=== PATIENT | female | born 1955 | race American Indian/Alaskan Native ===

== ENCOUNTER 2016-08-28 09:07 | Emergency (ER) | payer SELFPAY ==
[2016-08-28] MEDS ORDERED: LIDOCAINE VISCOUS 2% PO ONE (12:35)
[2016-08-28] MEDS ORDERED: TORADOL IM ONE (12:35)
[2016-08-28] MEDS ORDERED: DECADRON PO ONE (13:00)
[2016-08-28 14:19] VITALS: BP 155/98
--- NOTE | 2016-08-28 14:25 | Emergency Department Report ---
Entered by ROSA PATTERSON, acting as scribe for LYRIC BAEZ PA. ED General Adult HPI - General Chief complaint: Sore Throat Stated complaint: SORE THROAT Time Seen by Provider: 08/28/16 11:05 Source: patient Mode of arrival: Ambulatory Limitations: No Limitations - History of Present Illness Initial comments: 61 year old female presents to the ED for cold symptoms for 5 days. She reports sore throat, subjective fever, mild cough, and mucous. Patient states throat pain is worse with swallowing. She has taken Theraflu and DayQuil with mild relief of symptoms. She reports sick contact with grandson prior to symptom onset. Denies chest pain, shortness of breath, abdominal pain, nausea, vomiting. Onset/Timin -: days(s) Location: mouth (sore throat) Consistency: constant Improves with: none Worsens with: other (swallowing) Associated Symptoms: cough (mild), other (subjective fever, mucous). denies: chest pain, nausea/vomiting, shortness of breath Treatments Prior to Arrival: other (Theraful and DayQuil with mild relief) - Related Data Previous Rx's Medication Instructions Recorded Last Taken Type Azithromycin [Zithromax TAB] 500 mg PO QDAY #5 tablet 08/28/16 Unknown Rx Lidocaine Viscous 2% 15 ml MM TID #100 ml 08/28/16 Unknown Rx Naproxen [Naprosyn] 500 mg PO BID #30 tablet 08/28/16 Unknown Rx Allergies Allergy/AdvReac Type Severity Reaction Status Date / Time Penicillins Allergy Unknown Verified 10/19/15 17:55 ED Review of Systems Comment: All other systems reviewed and negative Constitutional: chills, fever (subjective) ENT: throat pain (worse with swallowing), other (mucous) Respiratory: cough (mild). denies: shortness of breath Cardiovascular: denies: chest pain Gastrointestinal: denies: abdominal pain, nausea, vomiting ED Past Medical Hx - Past Medical History Previous Medical History?: Yes Hx Hypertension: Yes - Surgical History Past Surgical History?: No - Social History Smoking Status: Never Smoker Substance Use Type: Alcohol, Prescribed, Other - Medications Home Medications: Home Medications Medication Instructions Recorded Confirmed Last Taken Type Azithromycin [Zithromax TAB] 500 mg PO QDAY #5 tablet 08/28/16 Unknown Rx Lidocaine Viscous 2% 15 ml MM TID #100 ml 08/28/16 Unknown Rx Naproxen [Naprosyn] 500 mg PO BID #30 tablet 08/28/16 Unknown Rx ED Physical Exam - General Limitations: No Limitations - Other Other exam information: GENERAL: The patient is well-developed and well-nourished. Patient is in NAD. HEAD: Normocephalic. Atraumatic. EYES: Extraocular motions are intact, PERRL. EARS: External auditory canals and tympanic membranes clear; hearing grossly intact. NOSE: Normal nasal mucosa with no nasal discharge. THROAT: Tonsillomegaly bilaterally with exudates and erythema. NECK: Supple. Right anterior cervical lymphadenopathy present. No meningitic signs are noted. CHEST/LUNGS: Clear to auscultation throughout. HEART/CARDIOVASCULAR: Regular rate and rhythm. No murmurs, rubs or gallops. ABDOMEN: Abdomen is soft, nontender. Bowel sounds normoactive. No guarding or rebound tenderness. NEURO: Alert and oriented x 3. Normal gait. ED Course Vital Signs 08/28/16 09:20 Temperature 98.4 F Pulse Rate 116 H Respiratory 20 Rate Blood Pressure 157/103 O2 Sat by Pulse 95 Oximetry ED Medical Decision Making - Lab Data Vital Signs 08/28/16 08/28/16 09:20 14:18 Temperature 98.4 F Pulse Rate 116 H 96 H Respiratory 20 20 Rate Blood Pressure 157/103 Blood Pressure 155/98 [Left] O2 Sat by Pulse 95 97 Oximetry - Medical Decision Making 61 year old female patient presents today with cold symptoms, sore throat, cough for 5 days. Her rapid strep reveals negative. Patient was given viscous lidocaine, Decadron by mouth and Toradol IM and she reports symptomatic relief post medication. She will be discharged home and is encouraged to follow up with a primary care provider. She will be sent home on azithromycin, viscous lidocaine and naprosyn and is encouraged to return to the emergency room for any worsening symptoms. ED Disposition Clinical Impression: Pharyngitis Qualifiers: Pharyngitis/tonsillitis etiology: unspecified etiology Qualified Code(s): J02.9 - Acute pharyngitis, unspecified Disposition: DISCHARGED TO HOME OR SELFCARE Is pt being admited?: No Does the pt Need Aspirin: No Condition: Stable Instructions: Pharyngitis (ED), Strep Throat (ED) Additional Instructions: Follow-up with primary care provider. Return to the emergency department if symptoms worsen. Prescriptions: Azithromycin [Zithromax TAB] 500 mg PO QDAY #5 tablet Lidocaine Viscous 2% 15 ml MM TID #100 ml Naproxen [Naprosyn] 500 mg PO BID #30 tablet Referrals: PRIMARY CARE,MD [Primary Care Provider] - 3-5 Days [facility] [Outside] - 3-5 Days Forms: Work/School Release Form(ED) Time of Disposition: 14:23 This documentation as recorded by the LEONARDO umana REBEKAH,accurately reflects the service I personally performed and the decisions made by NESTOR campbell NATASHA, PA.
== END 2016-08-28 14:30 | disposition home or self-care (01) ==
LOC: ED 09:07
DX: J02.9 Acute pharyngitis, unspecified (principal); I10 Essential (primary) hypertension; Z88.0 Allergy status to penicillin
CPT/HCPCS: 87116; 87430; 96372; 99282; J1885; J8540

== ENCOUNTER 2018-11-23 04:49 | Emergency (ER) | payer SELFPAY ==
[2018-11-23 04:56] VITALS: BP 142/88
[2018-11-23] MEDS ORDERED: SOLU-Medrol IM ONE (05:28)
[2018-11-23] MEDS ORDERED: FLEXERIL PO ONE (05:29)
[2018-11-23] MEDS ORDERED: ZOFRAN ODT ONE (06:38)
[2018-11-23] MEDS ORDERED: ZOFRAN ODT PO ONE (06:40)
[2018-11-23 06:44] LABS: Bacteria,Urine 1+ /HPF (Negative); Bilirubin,Urine NEG (Negative); Blood,Urine SM (Negative); Color,Urine Yellow (Yellow); Hyaline Casts,Urine 1 /LPF; Mucus,Urine FEW /HPF; Protein,Urine <15 mg/dL mg/dL (Negative); Urobilinogen,Urine < 2.0 mg/dL (<2.0)
[2018-11-23] MEDS ORDERED: LEVAQUIN PO ONE (06:51)
--- NOTE | 2018-11-23 06:57 | Cat Scan Report ---
PROCEDURE: CT LUMBAR SPINE WO CON TECHNIQUE: Computerized axial tomography of the lumbar spine was performed from T12 to the sacrum wi thout contrast material. CT DOSE LENGTH PRODUCT: mGycm HISTORY: lower back pain COMPARISONS: None . FINDINGS: There is straightening of the lumbar spine. There are no fractures or malalignments. L1-2: No significant abnormality . L2-3: No significant abnormality . L3-4: There is moderate degenerative narrowing of the disc space. There is left lateral disc bulging and osteophytic ridging causing moderate left foraminal stenosis. . L4-5: No significant abnormality . L5-S1: No significant abnormality . Other: The sacrum and sacroiliac joints are intact. Soft tissues are unremarkable. . IMPRESSION: There is no fracture or malalignment. There is no disc herniation or significant spinal stenosis. . There is moderate degenerative narrowing of the disc space at L3-L4 with left lateral disc bulging an d osteophytic ridging causing moderate left foraminal stenosis. . This document is electronically signed by Samuel Hendrix MD., November 23 2018 06:55:06 AM ET
--- NOTE | 2018-11-23 06:57 | Emergency Department Report ---
ED Back Pain/Injury HPI - General Chief Complaint: Back Pain/Injury Stated Complaint: LOWER BACK LEG PAIN Time Seen by Provider: 11/23/18 05:20 Source: patient Limitations: No Limitations - History of Present Illness Initial Comments: Patient is a 63-year-old -[place] female with a history of hypertension who presents to the ED record in no acute onset persistent severe low back pain that radiates to the lower extremities bilaterally for the last one hour. Patient states that she was asleep when she turned on her bed and felt a sharp pain on her lower back that radiates to her lower extremities bilaterally. Patient states that she was unable to move or perform any activities or motion because of severe pain. Patient states that she has taken a total of about 1600 mg of ibuprofen, and also took a Percocet 5 mg/325 mg 4-5 minutes prior to arrival in the ED. Patient states the pain is still present and worse and she is unable to bear weight because of severe pain. Patient denies dysuria, urinary frequency and urgency, hematuria, traumatic injury, heavy lifting, fall, numbness and tingling or weakness of lower extremities bilaterally, dizziness, chest pain, shortness of breath, urinary or bowel incontinence, saddle paresthesia, neck pain or abdominal pain, fever and chills. MD Complaint: back pain -: Sudden, hour(s) (1) Similar Symptoms Previously: Yes Place: home Radiation: left leg, right leg Severity: severe Severity scale (0 -10): 8 Quality: sharp, aching Consistency: constant Improves With: none Worsens With: movement, sitting upright, walking Context: turning/twisting ( while asleep) Associated Symptoms: difficulty walking. denies: confusion, weakness, chest pain, numbness, cough, difficulty urinating, diaphoresis, incontinence, constipation, headaches, abdominal pain, loss of appetite, malaise, nausea/vomit ing, rash, seizure, shortness of breath, syncope Treatments Prior to Arrival: NSAIDS (Motrin), prescription analgesics (percocet) - Related Data Previous Rx's Medication Instructions Recorded Last Taken Type Azithromycin [Zithromax TAB] 500 mg PO QDAY #5 tablet 08/28/16 Unknown Rx Lidocaine Viscous 2% 15 ml MM TID #100 ml 08/28/16 Unknown Rx Naproxen [Naprosyn] 500 mg PO BID #30 tablet 08/28/16 Unknown Rx Carisoprodol [Soma] 350 mg PO Q8H PRN #24 tablet 11/23/18 Unknown Rx Naproxen [Naprosyn] 500 mg PO Q12H PRN #20 tablet 11/23/18 Unknown Rx Sulfamethoxazole/Trimethoprim 1 each PO BID #20 tablet 11/23/18 Unknown Rx [Bactrim DS TAB] predniSONE [Deltasone] 60 mg PO QDAY #15 tab 11/23/18 Unknown Rx traMADol [Ultram] 50 mg PO Q6HR PRN #20 tablet 11/23/18 Unknown Rx Allergies Allergy/AdvReac Type Severity Reaction Status Date / Time Penicillins Allergy Unknown Verified 10/19/15 17:55 ED Review of Systems ROS: Stated complaint: LOWER BACK LEG PAIN Other details as noted in HPI Constitutional: denies: chills, fever Eyes: denies: eye pain, eye discharge, vision change ENT: denies: ear pain, throat pain Respiratory: denies: cough, shortness of breath, wheezing Cardiovascular: denies: chest pain, palpitations Endocrine: no symptoms reported Gastrointestinal: denies: abdominal pain, nausea, diarrhea Genitourinary: denies: urgency, dysuria, discharge Musculoskeletal: back pain (lower back). denies: joint swelling, arthralgia Skin: denies: rash, lesions Neurological: denies: headache, weakness, paresthesias Psychiatric: denies: anxiety, depression Hematological/Lymphatic: denies: easy bleeding, easy bruising ED Past Medical Hx - Past Medical History Previous Medical History?: Yes Hx Hypertension: Yes - Surgical History Past Surgical History?: No - Social History Smoking Status: Never Smoker Substance Use Type: None - Medications Home Medications: Home Medications Medication Instructions Recorded Confirmed Last Taken Type Azithromycin [Zithromax TAB] 500 mg PO QDAY #5 tablet 08/28/16 Unknown Rx Lidocaine Viscous 2% 15 ml MM TID #100 ml 08/28/16 Unknown Rx Naproxen [Naprosyn] 500 mg PO BID #30 tablet 08/28/16 Unknown Rx Carisoprodol [Soma] 350 mg PO Q8H PRN #24 tablet 11/23/18 Unknown Rx Naproxen [Naprosyn] 500 mg PO Q12H PRN #20 tablet 11/23/18 Unknown Rx Sulfamethoxazole/Trimethoprim 1 each PO BID #20 tablet 11/23/18 Unknown Rx [Bactrim DS TAB] predniSONE [Deltasone] 60 mg PO QDAY #15 tab 11/23/18 Unknown Rx traMADol [Ultram] 50 mg PO Q6HR PRN #20 tablet 11/23/18 Unknown Rx ED Physical Exam - General Limitations: No Limitations General appearance: alert, in no apparent distress - Head Head exam: Present: atraumatic, normocephalic, normal inspection - Eye Eye exam: Present: normal appearance, PERRL, EOMI. Absent: scleral icterus, conjunctival injection, nystagmus, periorbital swelling, periorbital tenderness Pupils: Present: normal accommodation - ENT ENT exam: Present: normal exam, normal orophraynx, mucous membranes moist, TM's normal bilaterally, normal external ear exam - Neck Neck exam: Present: normal inspection, full ROM. Absent: tenderness - Respiratory Respiratory exam: Present: normal lung sounds bilaterally. Absent: respiratory distress, wheezes, rales, rhonchi, chest wall tenderness, accessory muscle use, decreased breath sounds, prolonged expiratory - Cardiovascular Cardiovascular Exam: Present: regular rate, normal rhythm, normal heart sounds. Absent: systolic murmur, diastolic murmur, rubs, gallop - GI/Abdominal GI/Abdominal exam: Present: soft, normal bowel sounds. Absent: distended, tenderness, guarding, rebound, hyperactive bowel sounds, hypoactive bowel sounds , organomegaly - Rectal Rectal exam: Present: deferred - Extremities Exam Extremities exam: Present: normal inspection, full ROM, normal capillary refill - Back Exam Back exam: Present: normal inspection, tenderness (Palpable lumbosacral paraspinal musculoskeletal tenderness with limited ROM due to pain), muscle spasm, paraspinal tenderness - Neurological Exam Neurological exam: Present: alert, oriented X3, CN II-XII intact, normal gait (palpable lumbar sacral paraspinal musculoskeletal tenderness), reflexes normal - Psychiatric Psychiatric exam: Present: normal affect, normal mood, anxious - Skin Skin exam: Present: warm, dry, intact, normal color. Absent: rash ED Course Vital Signs 11/23/18 04:54 Temperature 98.2 F Pulse Rate 87 Respiratory 20 Rate Blood Pressure 142/88 O2 Sat by Pulse 98 Oximetry - Reevaluation(s) Reevaluation #1: 11/23/18 06:59 Patient is alert and oriented 3 and is not in distress with normal vital signs. Urinalysis shows acute urinary tract infection. Patient stated that she had taken about 1600 mg ibuprofen and Percocet 5 mg/525mg prior to arrival in the ED. Patient was treated in the ED with Decadron 10 mg intramuscular injection and Flexeril 10 mg by mouth 1. L-spine CT scan without contrast shows no acute fractures or malalignment. Soft tissues are unremarkable. There is no disc herniation or significant spinal stenosis. There is however moderate degenerative narrowing of the disc space at L3-L4 with a left lateral disc bulging and osteophytes ridging causing moderate left foraminal stenosis. On reevaluation, patient's pain is well controlled with medications, and patient discharged home on pain medications, muscle relaxants and steroid Dosepak as well as antibiotics for acute urinary tract infection. Patient advised to follow up with her primary care physician in 5-7 days for reevaluation or return to the ED immediately if symptoms get worse. 11/23/18 07:00 11/23/18 07:16 ED Medical Decision Making - Radiology Data Radiology results: report reviewed, image reviewed L-spine CT scan w/o contrast: Shows no acute fractures or malalignment. Soft tissues are unremarkable. There is no disc herniation or significant spinal stenosis. There is however moderate degenerative narrowing of the disc space at L3-L4 with a left lateral disc bulging and osteophytes ridging causing moderate left foraminal stenosis. - Medical Decision Making Patient is alert and oriented 3 and is not in distress with normal vital signs. Urinalysis shows acute urinary tract infection. Patient stated that she had taken about 1600 mg ibuprofen and Percocet 5 mg/525mg prior to arrival in the ED. Patient was treated in the ED with Decadron 10 mg intramuscular injection and Flexeril 10 mg by mouth 1. L-spine CT scan without contrast shows no acute fractures or malalignment. Soft tissues are unremarkable. There is no disc herniation or significant spinal stenosis. There is however moderate degenerative narrowing of the disc space at L3-L4 with a left lateral disc bulging and osteophytes ridging causing moderate left foraminal stenosis. On reevaluation, patient's pain is well controlled with medications, and patient discharged home on pain medications, muscle relaxants and steroid Dosepak as well as antibiotics for acute urinary tract infection. Patient advised to follow up with her primary care physician in 5-7 days for reevaluation or return to the ED immediately if symptoms get worse. - Differential Diagnosis Lumbar radiculopathy; Muscle spasm of lower back; Acute UTI, kidney stones Critical care attestation.: If time is entered above; I have spent that time in minutes in the direct care of this critically ill patient, excluding procedure time. ED Disposition Clinical Impression: Spasm of muscle of lower back, Acute urinary tract infection Chronic low back pain with sciatica Qualifiers: Back pain laterality: bilateral Sciatica laterality: bilateral sciatica Qualified Code(s): M54.42 - Lumbago with sciatica, left side Disposition: TO HOME OR SELFCARE Is pt being admited?: No Does the pt Need Aspirin: No Condition: Stable Instructions: Lumbar Radiculopathy (ED), Muscle Spasm (ED), Chronic Back Pain (ED) Additional Instructions: Take medications, drink plenty of fluids and follow up with your primary care physician in 5-7 days for reevaluation. Return to the ED immediately if symptoms get worse. Prescriptions: Sulfamethoxazole/Trimethoprim [Bactrim DS TAB] 1 each PO BID #20 tablet predniSONE [Deltasone] 60 mg PO QDAY #15 tab Naproxen [Naprosyn] 500 mg PO Q12H PRN #20 tablet PRN Reason: Pain , Severe (7-10) Carisoprodol [Soma] 350 mg PO Q8H PRN #24 tablet PRN Reason: Muscle Spasm traMADol [Ultram] 50 mg PO Q6HR PRN #20 tablet PRN Reason: Pain Referrals: ADARSH MONTE MD [Primary Care Provider] - 3-5 Days Time of Disposition: 07:22 Print Language: ANDORRAN
== END 2018-11-23 07:29 | disposition home or self-care (01) ==
LOC: ED 04:49
DX: M62.830 Muscle spasm of back (principal); M54.42 Lumbago with sciatica, left side; N39.0 Urinary tract infection, site not specified; I10 Essential (primary) hypertension; Z79.899 Other long term (current) drug therapy; Z88.0 Allergy status to penicillin
CPT/HCPCS: 72131; 81001; 87086; 96372; 99284; J2930; Q0162

== ENCOUNTER 2019-07-16 17:39 | Emergency (ER) | payer SELFPAY ==
--- NOTE | 2019-07-16 19:21 | Event Note ---
ED Screening Note ED Screening Note: Patient complains of not feeling well since last night. increased urination since last night. Complains of chills and abdominal cramping. Right flank pain as well with nausea. This initial assessment/diagnostic orders/clinical plan/treatment(s) is/are subject to change based on patients health status, clinical progression and re- assessment by fellow clinical providers in the ED. Further treatment and workup at subsequent clinical providers discretion. Patient/guardian urged not to elope from the ED as their condition may be serious if not clinically assessed and managed. Initial orders include:
[2019-07-16] MEDS ORDERED: ONDANSETRON 4 MG ODT TAB PO ONE (19:22)
[2019-07-16] MEDS ORDERED: traMADol 50 MG TAB PO ONE (19:22)
[2019-07-16 19:49] LABS: Basophils % (Auto) 0.5 % (0.0-1.8); Eosinophils % (Auto) 0.3 % (0.0-4.3); Hematocrit 44.3 % (30.3-42.9); Hemoglobin 15.2 gm/dl (10.1-14.3); Lymphocytes % (Auto) 10.2 % (13.4-35.0); Mean Corpuscular HGB Conc 34 % (30-34); Mean Corpuscular Volume 88 fl (79-97); Monocytes # (Auto) 0.7 K/mm3 (0.0-0.8); Monocytes % (Auto) 7.3 % (0.0-7.3); Platelet Count 242 K/mm3 (140-440); Red Blood Count 5.04 M/mm3 (3.65-5.03); Red Cell Distribution Width 14.1 % (13.2-15.2)
[2019-07-16 20:12] LABS: Alanine Aminotransferase 20 units/L (7-56); Albumin 4.4 g/dL (3.9-5); BUN/Creatinine Ratio 17; Blood Urea Nitrogen 12 mg/dL (7-17); Calcium 9.6 mg/dL (8.4-10.2); Hemolysis Index 7
--- NOTE | 2019-07-16 22:45 | Cat Scan Report ---
CT ABDOMEN AND PELVIS WITHOUT IV CONTRAST INDICATION: abdominal pain. COMPARISON: None available. TECHNIQUE: All CT scans at this facility use dose modulation, automated exposure control, iterative reconstructi on or weight based dosing, when appropriate, to reduce radiation dose to as low as reasonably achieva ble. FINDINGS: Lung Bases: No significant abnormality. Skeletal System: No acute abnormality. ABDOMEN: Liver: Within the posterior right hepatic lobe, there is a 1 cm hypodensity. This is too small to wilfrid racterize but could be a hemangioma. Given noncontrast technique, the liver is otherwise unremarkable . Gallbladder: There are several punctate gallstones. Bile Ducts: No significant abnormality. Pancreas: No significant abnormality. Spleen: No significant abnormality. Adrenals: No significant abnormality. Right Kidney: No acute findings. Partially exophytic upper pole cyst is noted. Left Kidney: No significant abnormality. Upper GI tract: No significant abnormality. Lymph Nodes: No significant adenopathy. Aorta: No significant abnormality. Additional Findings: No significant abnormality. PELVIS: Colon: There is extensive diverticulosis in the colon. There is focal colonic wall thickening in the sigmoid in the region of diverticulosis with mild pericolonic stranding. There are a few pericolonic lymph nodes in this region. No free fluid or abscess is seen. Urinary Bladder and Distal Ureters: No significant abnormality. Appendix: No significant abnormality. Lymph Nodes: No iliac chain or groin adenopathy. Additional Findings: None. IMPRESSION: 1. Focal wall thickening in the sigmoid colon in the region of diverticulosis is likely due to diver ticulitis. However, the wall thickening is somewhat diffuse. Colonoscopy is recommended after resolut ion of symptoms to exclude underlying intrinsic lesion/neoplasm. These findings could be due to acute on chronic diverticulitis. 2. 1 cm hypodensity posterior right hepatic lobe is too small to characterize without contrast. This could be a small hemangioma but is nonspecific. 3. Punctate gallstones. 3. Additional, incidental findings as above. Signer Name: Jaden Garcia MD Signed: 07/16/2019 10:40 PM Workstation Name: [id number]
[2019-07-16 23:10] LABS: Bacteria,Urine 1+ /HPF (Negative); Bilirubin,Urine NEG (Negative); Blood,Urine NEG (Negative); Color,Urine Straw (Yellow); Mucus,Urine FEW /HPF; Protein,Urine <15 mg/dL mg/dL (Negative); Urobilinogen,Urine < 2.0 mg/dL (<2.0); WBC,Urine < 1.0 /HPF (0.0-6.0)
[2019-07-16 23:43] VITALS: BP 137/88
--- NOTE | 2019-07-17 01:33 | Emergency Department Report ---
ED Abdominal Pain HPI - General Chief Complaint: Abdominal Pain Stated Complaint: FLU SYM Time Seen by Provider: 07/16/19 19:18 Source: patient Mode of arrival: Ambulatory Limitations: No Limitations - History of Present Illness Initial Comments: 63-year-old -Stateless female patient with history of hypertension presents with complaints of mid abdominal cramping type pain x yesterday. She admits to chills, however she denies any fever, vomiting, hematochezia/melena, dysuria/hematuria, or previous abdominal surgeries. She admits to 2 episodes of watery diarrhea, nausea, and increased urinary frequency. She states her pain was a 9/10 in severity upon arrival, however is now a 0/10 in severity after pain medications given here in ED. Patient denies history of having a colonoscopy. -: Sudden Severity scale (0 -10): 9 Quality: cramping - Related Data Previous Rx's Medication Instructions Recorded Last Taken Type Azithromycin [Zithromax TAB] 500 mg PO QDAY #5 tablet 08/28/16 Unknown Rx Lidocaine Viscous 2% 15 ml MM TID #100 ml 08/28/16 Unknown Rx Naproxen [Naprosyn] 500 mg PO BID #30 tablet 08/28/16 Unknown Rx Naproxen [Naprosyn] 500 mg PO Q12H PRN #20 tablet 11/23/18 Unknown Rx Sulfamethoxazole/Trimethoprim 1 each PO BID #20 tablet 11/23/18 Unknown Rx [Bactrim DS TAB] carisoprodoL [Soma] 350 mg PO Q8H PRN #24 tablet 11/23/18 Unknown Rx predniSONE [Deltasone] 60 mg PO QDAY #15 tab 11/23/18 Unknown Rx traMADoL [Ultram] 50 mg PO Q6HR PRN #20 tablet 11/23/18 Unknown Rx Ciprofloxacin HCl [Ciprofloxacin 500 mg PO Q12HR 7 Days #14 tab 07/17/19 Unknown Rx TAB] metroNIDAZOLE [Flagyl TAB] 500 mg PO Q8HR 7 Days #21 tab 07/17/19 Unknown Rx traMADoL [Ultram 50 MG tab] 50 - 100 mg PO Q8HR PRN #12 tablet 07/17/19 Unknown Rx Allergies Allergy/AdvReac Type Severity Reaction Status Date / Time Penicillins Allergy Unknown Verified 10/19/15 17:55 ED Review of Systems ROS: Stated complaint: FLU SYM Other details as noted in HPI Constitutional: chills. denies: fever Respiratory: denies: cough, shortness of breath Cardiovascular: denies: chest pain, edema, syncope Endocrine: denies: excessive sweating Gastrointestinal: abdominal pain, nausea, diarrhea. denies: vomiting, cons tipation, hematemesis, melena, hematochezia Genitourinary: frequency. denies: urgency, dysuria, hematuria, abnormal menses Musculoskeletal: denies: back pain, myalgia Neurological: denies: headache, weakness Hematological/Lymphatic: denies: easy bleeding, swollen glands ED Past Medical Hx - Past Medical History Previous Medical History?: Yes Hx Hypertension: Yes - Surgical History Past Surgical History?: No - Social History Smoking Status: Never Smoker - Medications Home Medications: Home Medications Medication Instructions Recorded Confirmed Last Taken Type Azithromycin [Zithromax TAB] 500 mg PO QDAY #5 tablet 08/28/16 Unknown Rx Lidocaine Viscous 2% 15 ml MM TID #100 ml 08/28/16 Unknown Rx Naproxen [Naprosyn] 500 mg PO BID #30 tablet 08/28/16 Unknown Rx Naproxen [Naprosyn] 500 mg PO Q12H PRN #20 tablet 11/23/18 Unknown Rx Sulfamethoxazole/Trimethoprim 1 each PO BID #20 tablet 11/23/18 Unknown Rx [Bactrim DS TAB] carisoprodoL [Soma] 350 mg PO Q8H PRN #24 tablet 11/23/18 Unknown Rx predniSONE [Deltasone] 60 mg PO QDAY #15 tab 11/23/18 Unknown Rx traMADoL [Ultram] 50 mg PO Q6HR PRN #20 tablet 11/23/18 Unknown Rx Ciprofloxacin HCl [Ciprofloxacin 500 mg PO Q12HR 7 Days #14 tab 07/17/19 Unknown Rx TAB] metroNIDAZOLE [Flagyl TAB] 500 mg PO Q8HR 7 Days #21 tab 07/17/19 Unknown Rx traMADoL [Ultram 50 MG tab] 50 - 100 mg PO Q8HR PRN #12 tablet 07/17/19 Unknown Rx ED Physical Exam - General Limitations: No Limitations General appearance: alert, in no apparent distress - Head Head exam: Present: atraumatic, normocephalic - Eye Eye exam: Present: normal appearance. Absent: scleral icterus - Neck Neck exam: Present: normal inspection - Respiratory Respiratory exam: Present: normal lung sounds bilaterally. Absent: respiratory distress - Cardiovascular Cardiovascular Exam: Present: regular rate, normal rhythm. Absent: systolic murmur, diastolic murmur, rubs, gallop - GI/Abdominal GI/Abdominal exam: Present: soft, normal bowel sounds. Absent: distended, tenderness, guarding, rebound, rigid, organomegaly, mass - Extremities Exam Extremities exam: Present: normal inspection. Absent: pedal edema - Back Exam Back exam: Present: full ROM. Absent: CVA tenderness (R), CVA tenderness (L) - Neurological Exam Neurological exam: Present: alert, oriented X3 - Psychiatric Psychiatric exam: Present: normal affect, normal mood - Skin Skin exam: Present: warm, dry, intact, normal color. Absent: rash ED Course Vital Signs 07/16/19 07/16/19 07/17/19 19:18 23:41 01:50 Temperature 98.3 F 97.9 F Pulse Rate 117 H 107 H 84 Respiratory 20 18 17 Rate Blood Pressure 147/92 137/88 O2 Sat by Pulse 95 95 99 Oximetry ED Medical Decision Making - Lab Data Result diagrams: 07/16/19 19:32 07/16/19 19:32 Lab Results 07/16/19 07/16/19 07/16/19 Range/Units 19:32 19:32 22:00 WBC 9.9 (4.5-11.0) K/mm3 RBC 5.04 H (3.65-5.03) M/mm3 Hgb 15.2 H (10.1-14.3) gm/dl Hct 44.3 H (30.3-42.9) % MCV 88 (79-97) fl MCH 30 (28-32) pg MCHC 34 (30-34) % RDW 14.1 (13.2-15.2) % Plt Count 242 (140-440) K/mm3 Lymph % (Auto) 10.2 L (13.4-35.0) % [place] % (Auto) 7.3 (0.0-7.3) % Eos % (Auto) 0.3 (0.0-4.3) % Baso % (Auto) 0.5 (0.0-1.8) % Lymph # 1.0 L (1.2-5.4) K/mm3 [place] # 0.7 (0.0-0.8) K/mm3 Eos # 0.0 (0.0-0.4) K/mm3 Baso # 0.0 (0.0-0.1) K/mm3 Seg Neutrophils % 81.7 H (40.0-70.0) % Seg Neutrophils # 8.1 H (1.8-7.7) K/mm3 Sodium 136 L (137-145) mmol/L Potassium 3.9 (3.6-5.0) mmol/L Chloride 96.8 L (98-107) mmol/L Carbon Dioxide 25 (22-30) mmol/L Anion Gap 18 mmol/L BUN 12 (7-17) mg/dL Creatinine 0.7 (0.7-1.2) mg/dL Estimated GFR > 60 ml/min BUN/Creatinine Ratio 17 % Glucose 109 H (65-100) mg/dL Calcium 9.6 (8.4-10.2) mg/dL Total Bilirubin 0.50 (0.1-1.2) mg/dL AST 27 (5-40) units/L ALT 20 (7-56) units/L Alkaline Phosphatase 128 (35-129) units/L Total Protein 8.2 (6.3-8.2) g/dL Albumin 4.4 (3.9-5) g/dL Albumin/Globulin Ratio 1.2 % Lipase 19 (13-60) units/L Urine Color Straw (Yellow) Urine Turbidity Clear (Clear) Urine pH 7.0 (5.0-7.0) Ur Specific [place] 1.011 (1.003-1.030) Urine Protein <15 mg/dl (Negative) mg/dL Urine Glucose (UA) Neg (Negative) mg/dL Urine Ketones Neg (Negative) mg/dL Urine Blood Neg (Negative) Urine Nitrite Neg (Negative) Urine Bilirubin Neg (Negative) Urine Urobilinogen < 2.0 (<2.0) mg/dL Ur Leukocyte Esterase Tr (Negative) Urine WBC (Auto) < 1.0 (0.0-6.0) /HPF Urine RBC (Auto) 6.0 (0.0-6.0) /HPF U Epithel Cells (Auto) 2.0 (0-13.0) /HPF Urine Bacteria (Auto) 1+ (Negative) /HPF Urine Mucus Few /HPF - Radiology Data Radiology results: report reviewed CT ABDOMEN AND PELVIS WITHOUT IV CONTRAST INDICATION: abdominal pain. COMPARISON: None available. TECHNIQUE: All CT scans at this facility use dose modulation, automated exposure control, iterative reconstruction or weight based dosing, when appropriate, to reduce radiation dose to as low as reasonably achievable. FINDINGS: Lung Bases: No significant abnormality. Skeletal System: No acute abnormality. ABDOMEN: Liver: Within the posterior right hepatic lobe, there is a 1 cm hypodensity. This is too small to characterize but could be a hemangioma. Given noncontrast technique, the liver is otherwise unremarkable. Gallbladder: There are several punctate gallstones. Bile Ducts: No significant abnormality. Pancreas: No significant abnormality. Spleen: No significant abnormality. Adrenals: No significant abnormality. Right Kidney: No acute findings. Partially exophytic upper pole cyst is noted. Left Kidney: No significant abnormality. Upper GI tract: No significant abnormality. Lymph Nodes: No significant adenopathy. Aorta: No significant abnormality. Additional Findings: No significant abnormality. PELVIS: Colon: There is extensive diverticulosis in the colon. There is focal colonic wall thickening in the sigmoid in the region of diverticulosis with mild pericolonic stranding. There are a few pericolonic lymph nodes in this region. No free fluid or abscess is seen. Urinary Bladder and Distal Ureters: No significant abnormality. Appendix: No significant abnormality. Lymph Nodes: No iliac chain or groin adenopathy. Additional Findings: None. IMPRESSION: 1. Focal wall thickening in the sigmoid colon in the region of diverticulosis is likely due to diverticulitis. However, the wall thickening is somewhat diffuse. Colonoscopy is recommended after resolution of symptoms to exclude underlying intrinsic lesion/neoplasm. These findings could be due to acute on chronic diverticulitis. 2. 1 cm hypodensity posterior right hepatic lobe is too small to characterize without contrast. This could be a small hemangioma but is nonspecific. 3. Punctate gallstones. 3. Additional, incidental findings as above. - Medical Decision Making 63-year-old -Stateless female patient with history of hypertension presents with complaints of mid abdominal cramping type pain x yesterday. Tachycardia noted on initial vitals, however heart rate is normal on exam. No abdominal tenderness to palpation noted on exam-exam was performed after patient received tramadol. CBC shows normal white count. No significant abnormalities noted on UA or CMP. CT abdomen shows sigmoid diverticulitis and small 1 cm lesion on liver. Patient is afebrile and not tachycardic and nontoxic appe aring. She is stable for outpatient treatment with metronidazole and Cipro. Patient informed to follow-up with gastroenterology within 2 days. Discussed very strict return precautions in great detail with patient who verbalizes understanding. Patient informed that she will need a colonoscopy after resolution of her symptoms due to CT not be able to rule out neoplasm, patient states understanding Critical care attestation.: If time is entered above; I have spent that time in minutes in the direct care of this critically ill patient, excluding procedure time. ED Disposition Clinical Impression: Diverticulitis, Lesion of liver Disposition: DC-01 TO HOME OR SELFCARE Is pt being admited?: No Condition: Stable Instructions: Abdominal Pain (ED) Prescriptions: Ciprofloxacin HCl [Ciprofloxacin TAB] 500 mg PO Q12HR 7 Days #14 tab metroNIDAZOLE [Flagyl TAB] 500 mg PO Q8HR 7 Days #21 tab traMADoL [Ultram 50 MG tab] 50 - 100 mg PO Q8HR PRN #12 tablet PRN Reason: Pain Referrals: [facility] [Provider Group] - 07/19/19 Forms: Work/School Release Form(ED)
== END 2019-07-17 02:08 | disposition home or self-care (01) ==
LOC: ED 17:39
DX: K57.92 Diverticulitis of intestine, part unspecified, without perforation or abscess without bleeding (principal); K76.9 Liver disease, unspecified; I10 Essential (primary) hypertension; F17.200 Nicotine dependence, unspecified, uncomplicated; Z88.0 Allergy status to penicillin
CPT/HCPCS: 36415; 74176; 80053; 81001; 83690; 85025; Q0162